=== PATIENT | female | born 1930 | race Caucasian/White ===

== ENCOUNTER 2016-10-01 23:43 | Emergency (ER) | payer MEDICARE, BC ==
[~2016-10-01 23:43] MED LIST: ASPIR 8181 MG PO; CALTRATE 600+D1 EAC1 PO; CALTRATE-600 D600 MG PO; CENTRUM SILVER1 EAC1 PO; CICLOPIROX 8%34.6 ML TP; CITRACAL PO; CLARITIN DPS10 MG PO; DULCOLAX-DPS10 MG PR; HYDROCODON-ACE1 EAC4 PO; HYDROCODONE 5MG/5 MG PO; JANTOVEN2.5 MG PO; LASIX DPS40 MG PO; LASIX80 MG PO; METAMUCIL0.52 GM PO; MICRO-K DPS10 MEQ PO; MILK OF MAGNESI10 ML PO; MUCINEX600 MG PO; PEPCID20 MG PO; POTASSIUM PO; SENOKOT DPS8.6 MG PO; SURFAK DPS240 MG PO; SYNTHROID DP0.025 MG PO; TUMS200 MG PO; TYLENOL DPS325 MG PO; ZESTRIL DPS5 MG PO
[2016-11-19] MEDS ORDERED: KLOR-CON M2020 ME1 PO (19:38)
[2016-11-19] MEDS ORDERED: CORDARONE DPS200 MG PO (19:38)
[2016-11-19] MEDS ORDERED: CARVEDILOL6.25 MG PO (19:38)
[2016-11-19] MEDS ORDERED: NAMENDA10 MG PO (19:39)
[2016-11-19] MEDS ORDERED: ROBITUSSIN AC D30 ML PO (19:40)
[2016-11-19] MEDS ORDERED: MAALOX DPS30 ML PO (19:40)
[2016-11-19] MEDS ORDERED: MILK OF MAGNESI10 ML PO (19:41)
[2016-11-19] MEDS ORDERED: OYSTER SHELL C500 MG PO (19:41)
[2016-11-19] MEDS ORDERED: SENOKOT S1 TAB PO (19:41)
[2016-11-19] MEDS ORDERED: COLACE-DPS100 MG PO (19:41)
[2016-11-19] MEDS ORDERED: BACITRACIN15 G1 TP (19:42)
== END 2016-10-02 01:12 | disposition home or self-care (01) ==
DX: S09.90XA Unspecified injury of head, initial encounter (principal); I13.0 Hypertensive heart and chronic kidney disease with heart failure and stage 1 through stage 4 chronic kidney disease, or unspecified chronic kidney disease; N18.9 Chronic kidney disease, unspecified; I50.9 Heart failure, unspecified; I48.91 Unspecified atrial fibrillation; F03.90 Unspecified dementia, unspecified severity, without behavioral disturbance, psychotic disturbance, mood disturbance, and anxiety; Z79.01 Long term (current) use of anticoagulants; W01.0XXA Fall on same level from slipping, tripping and stumbling without subsequent striking against object, initial encounter; Y92.129 Unspecified place in nursing home as the place of occurrence of the external cause

== ENCOUNTER 2016-10-03 10:42 | Emergency (ER) | payer MEDICARE, BC ==
--- NOTE | 2016-10-03 14:12 | NUR ---
Received referral from ED for placement. Spoke with pt and [id number]. Pt was discharged from [facility] 10 days ago and has since returned to [facility]. This is the second ED visit since returning to [place]. Pt and family agree with pt going to [facility]. Referral made and info faxed to [facility]. They can accept the pt today and the [id number] will transport pt. [facility], Pt and Family are all aware and agree with the plan. Agata at [facility] is also aware pt is being transfered to [facility].
--- NOTE | 2016-10-07 12:33 | ER ---
ADMIT: 10/03/2016 RM/LOC: ER [facility] MR#: [id number] [address] [address] [place] [address] Emergency Room Report SEX: F AGE: 86 : 1930 DATE: 10/03/2016 ADDENDUM: An 86-year-old white female coming in with progressive memory problems as well as unsteady gait. I spoke with Dr. Blue after we had CT'd her head because she has been falling several times. At this time, she is unable to function at assisted care living area that she lives, so we are transferring her back in to full nursing care at [facility]. Family was advised. CONDITION ON DISCHARGE: Fair. Apollo Lovett MD/ ashvin JOB #: [id number] CC: Apollo Lovett MD, Attending Physician UNKNOWN, Family Physician
[2016-11-19] MEDS ORDERED: KLOR-CON M2020 ME1 PO (19:38)
[2016-11-19] MEDS ORDERED: CORDARONE DPS200 MG PO (19:38)
[2016-11-19] MEDS ORDERED: CARVEDILOL6.25 MG PO (19:38)
[2016-11-19] MEDS ORDERED: NAMENDA10 MG PO (19:39)
[2016-11-19] MEDS ORDERED: MAALOX DPS30 ML PO (19:40)
[2016-11-19] MEDS ORDERED: ROBITUSSIN AC D30 ML PO (19:40)
[2016-11-19] MEDS ORDERED: OYSTER SHELL C500 MG PO (19:41)
[2016-11-19] MEDS ORDERED: MILK OF MAGNESI10 ML PO (19:41)
[2016-11-19] MEDS ORDERED: SENOKOT S1 TAB PO (19:41)
[2016-11-19] MEDS ORDERED: COLACE-DPS100 MG PO (19:41)
[2016-11-19] MEDS ORDERED: BACITRACIN15 G1 TP (19:42)
== END 2016-10-03 14:10 ==
LOC: ER 10:42
DX: R41.3 Other amnesia (principal); R26.9 Unspecified abnormalities of gait and mobility; I10 Essential (primary) hypertension; Z79.899 Other long term (current) drug therapy; Z91.81 History of falling

== ENCOUNTER 2016-11-08 13:46 | Inpatient (IN) | payer MEDICARE, BC ==
[~2016-11-08] VITALS: Ht 157.5 cm; Wt 40.6 kg
--- NOTE | ~2016-11-08 | CO ---
ADMIT: 11/08/2016 RM/LOC: 415 [facility] MR#: [id number] [address] [address] [place], [place] [address] Consultation SEX: F AGE: 86 : 1930 DATE OF CONSULTATION: 11/08/2016 ATTENDING PHYSICIAN: Nanci Blue CONSULTING PHYSICIAN: Bhargav Lagos MD REASON FOR CONSULT: Severe back pain and lower buttock as well as groin pain. HISTORY OF PRESENT ILLNESS: Ms. Liang is a very pleasant woman who had a fall previously, none today though and has had a fairly acute onset of severe pain in her back. She had been anticoagulated previously as well. CTs were obtained, there was no sign of retroperitoneal hematoma or any other significant factors that might contribute to her symptomatology. I was called by Dr. Christopher in the ER. FAMILY HISTORY: No history of neurosurgical disease. SOCIAL HISTORY: She lives in a detention. PAST MEDICAL HISTORY: CHF, dilated cardiomyopathy, hyponatremia, progressive weakness, atrial fibrillation on anticoagulation. MEDICATIONS: 1. DuoNeb. 2. Levaquin. 3. Colace. 4. Hydrocodone. 5. Maalox. 6. Tylenol. 7. Nitrostat. 8. Morphine. 9. Artificial Tears. 10.Caltrate. 11.Ciclopirox. 12.Cordarone. 13.Coreg. 14.Cortisporin. 15.Potassium. 16.Lasix. 17.Mag-Al. 18.Memantine. 19.Robitussin. 20.Senokot. 21.Surfak. 22.Tylenol. REVIEW OF SYSTEMS: Complete review of systems was obtained with pertinent positives in the history of present illness. ADMIT: 11/08/2016 RM/LOC: 415 [facility] MR#: [id number] [address] [address] [place] [address] Consultation SEX: F AGE: 86 : 1930 PHYSICAL EXAM: VITAL SIGNS: 96.9 degrees, 68 beats, 14 respirations, 141/68, and 99% on room air. GENERAL: She is an otherwise healthy-appearing, but distressed appearing woman with severe pain with any type of movement of her back or buttocks. She has severe pain with ambulating as well. HEENT: She has an otherwise atraumatic head. No scleral icterus. Clear oropharynx. LUNGS: Normal respiratory excursion. ABDOMEN: Soft. NEUROLOGICAL EXAMINATION: MENTAL STATUS: She is awake, but a bit lethargic from the medications. She is oriented to person, place, and date. CRANIAL NERVES: Cranial nerves II through XII are individually tested and found to be intact without deficit. MOTOR EXAM: Motor exam reveals what is likely be 5/5 strength with full motor activation but she is in such severe pain, it is very difficult to assess her legs at this point. Deep tendon reflexes are 2/4 in the upper extremities, 1/4 in lower extremities. CEREBELLAR: No cerebellar signs. Gait not testable. ASSESSMENT AND PLAN: Ms. 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 She does not look like she has a radiculopathy although with her prior fall, sacral insufficiency fracture could certainly show up like this. We will have her get MRI of her lumbosacral spine, I will plan to see her after that. Bhargav Lagos MD/ ashvin JOB #: [id number] CC: Nanci Blue, Attending Physician Nanci Blue, Family Physician
--- NOTE | 2016-11-11 10:17 | OR ---
ADMIT: 11/08/2016 RM/LOC: 415 [facility] MR#: [id number] [address] [address] [place], [place] [address] Operative/Delivery Room Report SEX: F AGE: 86 : 1930 Corrected: 11/11/2016 0539 [facility] SURGERY DATE: 11/10/2016 SURGEON: Bhargav Lagos MD PREOPERATIVE DIAGNOSIS: Spinal epidural hematoma lumbar 1-2 and 2-3. POSTOPERATIVE DIAGNOSIS: Spinal epidural hematoma lumbar 1-2, 2-3, 3-4. PROCEDURE: Lumbar laminectomy lumbar 1-2, 2-3, and lumbar 3-4 for evacuation of compressive epidural hematoma with intraoperative fluoroscopy with physician interpretation of film. INDICATION: I discussed the patient's case with Dr. Blue immediately after her MRI was obtained reviewing the images myself prior to the official read, and then discussed it with Dr. Parsons in Radiology and the patient's son Prosper. We discussed the risks, benefits, and alternatives of lumbar 1 through 3 laminectomy with risks including, but not limited to, [place], DVT, PE, pneumonia, , loss of bowel or bladder or sexual function, CSF leak, finding of tumor, need for further surgery, need for kyphoplasty possibly at lumbar 4 as well as other procedures including paralysis to lower extremities and infection. I believe she understands the risks, benefits, and alternatives of surgery and wishes to have his mother proceed ahead as the POA. I also discussed this with the patient herself in her room, and she was amenable to surgery. DESCRIPTION OF PROCEDURE: After gaining informed consent, the patient was taken to the operating theater, placed under general endotracheal anesthesia in supine position. Turned prone on a Miguel Angel table. All pressure points purposely padded prior to performing the procedure. She was prepped and draped in usual sterile fashion. A time-out was utilized to ascertain the correct site and side of surgery as well as other pertinent patient's historical information. Counts were obtained at the beginning and at the end of the case. The fluoroscope was brought into the field. Lumbar three pedicle and lumbar 1 pedicle were marked. Incision was fashioned between these two areas. Once this was done, this was then taken down sharply suppressively dissecting the paraspinous musculature off the spinous process and lamina, lumbar 1-2 and lumbar 2-3 down towards lumbar 3-4 with the understanding from the MRI that the epidural extended down towards L3-4, look like it is mostly contained at 1- 2 and 2-3. The self-retaining retractors were in place and then various curettes, rongeurs, and a high-speed drill was used to fashion a laminectomy lumbar 1-2 and 2-3. Ligamentum flavum was resected and some congealed subacute- appearing epidural hematoma was noted, this was removed and sent for pathological specimen. This was extended up to lumbar 1-2 as high as necessary to evacuate as much clot as was visible and then extending down. Clot continued to be visibly possibly compressive down below the lumbar 3 level taking this down to lumbar 4 for a lumbar 3-4 laminectomy as well. There ADMIT: 11/08/2016 RM/LOC: 415 [facility] MR#: [id number] [address] [place] [address] [place] [address] Operative/Delivery Room Report SEX: F AGE: 86 : 1930 really was not any further sign of epidural hematoma at this point. There was some oozing throughout the case, this was stopped and pristine hemostasis was obtained. A RAFAEL drain was daylighted out and the wound was closed with simple interrupted 0 Vicryl in the thoracodorsal fascia, simple interrupted 2-0 Vicryl in the hypodermic tissue, and subcuticular 3-0 Stratafix on the skin. COMPLICATIONS: None. ESTIMATED BLOOD LOSS: Charted. SPECIMEN: Lumbar 1 through 4 epidural hematoma. DISPOSITION: Extubated and taken to postanesthesia care unit. Bhargav Lagos MD/ ashvin JOB #: [id number] CC: Nanci Blue, Attending Physician Nanci Blue, Family Physician Corrected: 11/11/2016 0539 [facility]
--- NOTE | 2016-11-17 18:52 | ER ---
ADMIT: 11/08/2016 RM/LOC: 415 [facility] MR#: [id number] [address] [address] [place] [address] Emergency Room Report SEX: F AGE: 86 : 1930 DATE: 11/08/2016 ADDENDUM: This patient comes to the ER because she has had severe pain over the last couple of days. She states that she denies any injury. No falls, was given Tylenol at the [facility], but has not touched her pain. Her son, who is with her, states this is very unusual for her. She has a very high pain tolerance. On physical exam, we are unable to reproduce the pain. I did palpate through her spine. I do not elicit the pain even with movement of rolling over. Does not seem to really increase it or decreases it. Her white count was 13,000. She was seen in the office yesterday and her INR was 8 and she was given vitamin K and her Coumadin was stopped. I did consult with Dr. Christopher concerning treatment of this patient. He also examined the patient. Dr. Christopher spoke with Dr. Lagos, the neurosurgeon, and Dr. Priscilla Chavez came to see the patient and evaluate her and ordered an MRI. Dr. Blue also came in to see the patient and she will admit her for back pain. Please see my T-sheet and Dr. Lagos and Dr. Blue's dictation. KELTON Winter / Arnoldo Christopher MD / cindil JOB #: [id number] CC: Nanci Blue MD, Attending Physician Nanci Blue MD, Family Physician
[2016-11-19] MEDS ORDERED: KLOR-CON M2020 ME1 PO (19:38)
[2016-11-19] MEDS ORDERED: CORDARONE DPS200 MG PO (19:38)
[2016-11-19] MEDS ORDERED: CARVEDILOL6.25 MG PO (19:38)
[2016-11-19] MEDS ORDERED: NAMENDA10 MG PO (19:39)
[2016-11-19] MEDS ORDERED: MAALOX DPS30 ML PO (19:40)
[2016-11-19] MEDS ORDERED: ROBITUSSIN AC D30 ML PO (19:40)
[2016-11-19] MEDS ORDERED: COLACE-DPS100 MG PO (19:41)
[2016-11-19] MEDS ORDERED: SENOKOT S1 TAB PO (19:41)
[2016-11-19] MEDS ORDERED: OYSTER SHELL C500 MG PO (19:41)
[2016-11-19] MEDS ORDERED: MILK OF MAGNESI10 ML PO (19:41)
[2016-11-19] MEDS ORDERED: BACITRACIN15 G1 TP (19:42)
--- NOTE | 2016-11-24 08:21 | DS ---
ADMIT: 11/08/2016 RM/LOC: 415 [facility] MR#: [id number] [address] [address] [place], [place] [address] General Discharge Summary SEX: F AGE: 86 : 1930 ADMISSION DATE: 11/08/2016 DISCHARGE DATE: 11/18/2016 DISCHARGE DIAGNOSES: 1. Evidence of L2-L3 posterior epidural hematoma, status post final lumbar laminectomy at L1-L2, L2-L3, and L3-L4 for evacuation of compressed epidural hematoma, L4 kyphoplasty with moderate conscious sedation. 2. Anemia. 3. Atrial fibrillation, currently in sinus rhythm. 4. Urinary retention with indwelling Perez catheter at the time of discharge. HISTORY OF PRESENT ILLNESS: Documented in her H and P. LABORATORY AND RADIOGRAPHIC ASSESSMENT: CTA of chest showed mild emphysemic changes with no dissection, mild prominent bilateral with surrounding inflammation, possible atelectasis or developing right middle lobe pneumonia. MRI of the LS spine showed L2-L3 posterior epidural heterogeneous mass causing [id number] central canal stenosis, multilevel severe central canal stenosis, L4 acute compression fracture. Lumbar x-ray showed lower inferior fracture at L3. Pelvic x-ray showed no abnormalities or degenerative changes in the right hip. Chest x-ray was normal. Ultrasound of kidneys showed no definite hydronephrosis in the right or left. Perez catheter of the bladder completely collapsed. EKG, sinus rhythm, left axis deviation. OPERATIVE PROCEDURE: Lumbar laminectomy, L1-L2, L2-L3, and L3-L4, for evacuation of compression epidural hematoma. HOSPITAL COURSE: Mrs. Liang is an elderly patient of mine, who has been on chronic anticoagulation with Coumadin, who was seen and evaluated in the office, had elevated INR, was given vitamin K. Presents to the emergency room the following day with severe abdominal and back pain. She was seen and evaluated in the emergency room. Her initial evaluation did not show any evidence of retroperitoneal bleed or any other significant abnormalities. We admitted her to the hospital for continued evaluation and care. We did set her up for an MRI of her LS spine. Neurosurgery to follow. She was unable to lie still to undergo further assessment with MRI. She was given vitamin K for complete correction of her INR. Pain management. Severe pain during this time, awaiting her ability to be able to undergo conscious sedation. She ADMIT: 11/08/2016 RM/LOC: 415 [facility] MR#: [id number] [address] [address] [place] [address] General Discharge Summary SEX: F AGE: 86 : 1930 eventually, on 11/10, underwent conscious sedation MRI which showed evidence of possible hematoma. She then was followed by Dr. Lagos and underwent further assessment with L1-L4 laminectomy for hematoma. Postop, she did well. She did have persistent pain and discomfort and did undergo further assessment with kyphoplasty at L4. Continued improvement in her pain and discomfort. She subsequently was discharged, she will go back to [facility] [place]. At the time of her discharge, her Perez catheter was re-inserted secondary of elevated postvoid residual. She will have follow through Urology. She will have followup with Neurosurgery as well as followup with myself. She subsequently was discharged. Please see her MAR for her home medications. Her long-term prognosis is fair. At this time because of numerous complications secondary to anticoagulation, we will not anticoagulate. Nanci Blue MD/ ashvin JOB #: [id number] CC: Nanci Blue MD, Attending Physician Nanci Blue MD, Family Physician
--- NOTE | 2016-12-02 07:46 | HP ---
ADMIT: 11/08/2016 RM/LOC: 415 [facility] MR#: [id number] [address] [address] [place], [place] [address] History and Physical SEX: F AGE: 86 : 1930 DATE OF SERVICE: REASON FOR ADMISSION: Severe abdominal pain, back pain, and leg pain. HISTORY OF PRESENT ILLNESS: She is an 86-year-old, white female with a past medical history atrial fibrillation, recently was seen and evaluated in the office yesterday with elevated INR of greater than 8. At that time, was given vitamin K subcu and with recheck of INR at a later date. She has history of hypertension, history of MA, congestive heart failure, history of facial fracture secondary to fall, history of dilated cardiomyopathy, hyponatremia, and progressive weakness. Yesterday, she had an elevated INR, not feeling well, complains of pain today in ER. She has pain and discomfort in her lower back with radiation into her legs. Her laboratory assessment showed a sodium of 136, potassium 3.6, BUN and creatinine 29 and 1.4. Blood sugar 120. INR 3.88. Her hemoglobin is 9.2. On the , hemoglobin was 10.2. White blood cell counts of 13.1. UA shows 1+ blood. CT shows patchy nodularities, right middle lobe, mild prominent renal collecting system, but no other acute abnormalities. She at this time is admitted for continued evaluation and care. SOCIAL HISTORY: She currently lives in a jail. FAMILY HISTORY: Noncontributory. REVIEW OF SYSTEMS: As per HPI. MEDICATIONS: 1. Artificial tears. 2. Caltrate 600 mg b.i.d. 3. Cordarone 200 mg daily. 4. Coreg 6.25 mg b.i.d. 5. Cortisporin otic and ophthalmic drops 4 times daily. 6. Potassium chloride. 7. Lasix 40 daily. 8. Magnesium. 9. Aluminum every 6 hours p.r.n. 10.Namenda 10 mg b.i.d. 11.Robitussin with codeine. 12.Senokot. 13.Surfak. 14.Tylenol 650 mg. PHYSICAL EXAMINATION: GENERAL: At this time on physical exam, she is extremely uncomfortable. HEENT: Normal. ADMIT: 11/08/2016 RM/LOC: 415 [facility] MR#: [id number] [address] [address] [place] [address] History and Physical SEX: F AGE: 86 : 1930 HEART: Regular rate and rhythm. LUNGS: Clear, but diminished to auscultation. ABDOMEN: Tender. EXTREMITIES: No evidence of edema. She is able to move her extremities. ASSESSMENT: Admission of an elderly white female with coagulopathy, which is being corrected with development of severe abdominal and back pain. Her CT scan of her abdomen and pelvis does not show any evidence of any retroperitoneal bleeding. There is concerns that she may have some process going on in her LS spine. Hematoma, etc. We at this time will admit to [facility]. We will continue to correct her INR as well as further evaluation. We did ask Dr. Lagos to see and assist in her care. Nanci Blue MD/ ashvin JOB #: [id number] CC: Nanci Blue MD, Attending Physician Nanci Blue MD, Family Physician
== END 2016-11-18 14:50 | DRG 28 ==
LOC: ER 13:46 → 4PCU 16:15
PROVIDERS: ADMIT Internal Medicine
PROC: 00NY0ZZ Release Lumbar Spinal Cord, Open Approach (ICD-10-PCS; principal; 2016-11-10)
PROC: 00CT0ZZ Extirpation of Matter from Spinal Meninges, Open Approach (ICD-10-PCS; principal; 2016-11-10)
PROC: 30233N1 Transfusion of Nonautologous Red Blood Cells into Peripheral Vein, Percutaneous Approach (ICD-10-PCS; principal; 2016-11-10)
PROC: 0QU03JZ Supplement Lumbar Vertebra with Synthetic Substitute, Percutaneous Approach (ICD-10-PCS; 2016-11-16)
PROC: 0QS03ZZ Reposition Lumbar Vertebra, Percutaneous Approach (ICD-10-PCS; 2016-11-16)
DX: G95.19 Other vascular myelopathies (principal); E43 Unspecified severe protein-calorie malnutrition; L89.301 Pressure ulcer of unspecified buttock, stage 1; I42.0 Dilated cardiomyopathy; I50.9 Heart failure, unspecified; F03.90 Unspecified dementia, unspecified severity, without behavioral disturbance, psychotic disturbance, mood disturbance, and anxiety; I48.91 Unspecified atrial fibrillation; M48.56XA Collapsed vertebra, not elsewhere classified, lumbar region, initial encounter for fracture; Z68.1 Body mass index [BMI] 19.9 or less, adult; D64.9 Anemia, unspecified; I25.2 Old myocardial infarction; R33.9 Retention of urine, unspecified; R79.1 Abnormal coagulation profile; Z96.641 Presence of right artificial hip joint